=== PATIENT | male | born 1965 | race Caucasian/White ===

== ENCOUNTER → 2018-10-06 | Outpatient (CLI) | payer OTHER ==
--- NOTE | 2018-10-07 08:23 | REP ---
CT of the right shoulder without IV contrast: There are no comparison studies. There is advanced glenohumeral osteoarthritis with deformity and pannus of the humeral head and accompanying deformity of the glenoid. There is no fracture or dislocation. There are no calcifications. There is an os acromion lady of the distal acromion. The acromioclavicular joint is unremarkable. Impression: Advanced deforming osteoarthritis of the glenohumeral joint. 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
== END ==
LOC: M RAD 09:15
PROVIDERS: ATTEND Surgery
DX: M19.011 Primary osteoarthritis, right shoulder (principal)

== ENCOUNTER → 2018-12-01 | Outpatient (CLI) | payer OTHER ==
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
== END ==
LOC: M RAD 08:43
PROVIDERS: ATTEND Surgery
DX: Z01.818 Encounter for other preprocedural examination (principal)